=== PATIENT | male | born 1980 | race Caucasian/White ===

== ENCOUNTER 2017-02-08 07:54 | Emergency (ER) | payer OTHER ==
[~2017-02-08] VITALS: Ht 185.4 cm; Wt 93.0 kg
[~2017-02-08 07:54] MED LIST: ALBU18HF INHALATION; AZIT250T94 PO; MED4DP PO
[2017-02-08] MEDS ORDERED: IPRATROPIUM (NEB) 0.5 MG/2.5 ML AMP INH STA (08:00)
[2017-02-08] MEDS ORDERED: ALBUTEROL 0.5% (NEB) 2.5 MG/0.5 ML AMP INH STA (08:00)
[2017-02-08] MEDS ORDERED: METHYLPREDNISOLONE 125 MG INJ IV STA (08:00)
[2017-02-08] MEDS ORDERED: MAGNESIUM SULFATE 1 GM/D5W 100 ML IVPB ONE (08:00)
[2017-02-08 08:01] VITALS: Ht 185.4 cm; Wt 93.0 kg
--- NOTE | 2017-02-08 08:30 | RADRPT ---
PROCEDURE: Chest x-ray CLINICAL INDICATION: Asthma TECHNIQUE: Chest single view COMPARISON: 06/06/2016 FINDINGS: The heart is normal in size. The pulmonary vessels are normal in caliber. The lungs are clear. Th e costophrenic angles are sharp. The visualized bony thorax is unremarkable. IMPRESSION: No acute cardiopulmonary disease. RPTAT: HH .Michael Lamb MD, Date Time Electronically viewed and signed by .Michael Lamb MD, on 02/08/2017 08:29 .W/
--- NOTE | 2017-02-08 09:41 | ERD ---
ER Documentation Chief Complaint Date/Time DATE: 02/08/17 TIME: 09:39 Chief Complaint sob and wheezing since last night, out of inhaler HPI This is a 36-year-old male who presents to the emergency room for evaluation of shortness of breath and wheezing. The patient does have a history of asthma and states that he ran out of his inhaler. He denies any fevers associated with this or any chest pain and came to ER for evaluation. Patient has no other complaints at this time ROS All systems reviewed and are negative except as per history of present illness. Medications Home Meds Active Scripts Methylprednisolone* (Medrol* DOSE PACK) 4 Mg/Dose-Pack Tab.ds.pk, 4 MG PO . DIRECTED for 6 Days, PACKET Prov:JARADSATNAMGOLD C 06/06/16 Azithromycin* (Zithromax*) 250 Mg Tablet, 250 MG PO .ZPACK DIRECTED, #6 TAB TAKE 500 MG (2 TABS) THE FIRST DAY THEN 250 MG (1 TAB) DAYS 2-5 Prov:GOLD ABRAHAM 06/06/16 Albuterol Sulfate* (Ventolin HFA*) 18 Gm Hfa.aer.ad, 2 PUFF INHALATION Q4H, #1 INHALER 3 Refills Prov:SATNAM ABRAHAMYOLIS Méndez 06/06/16 Allergies Allergies: Coded Allergies: No Known Allergy (Unverified , 02/08/17) PMhx/Soc History of Surgery: Yes (l. arm ) Hx Respiratory Disorders: Yes (asthma) Hx Alcohol Use: No Hx Substance Use: No Hx Tobacco Use: Yes Smoking Status: Current some day smoker Physical Exam Vitals Vital Signs Date Time Temp Pulse Resp B/P Pulse Ox O2 Delivery O2 Flow Rate FiO2 02/08/17 09:10 77 20 94 Nasal Cannula 4.0 02/08/17 09:09 94 4.0 02/08/17 09:09 Nasal Cannula 4 02/08/17 08:28 78 22 127/80 95 Mask 8.0 02/08/17 08:10 Rebreather 15 02/08/17 08:08 98 28 100 Non Rebreather Mask 15.0 100 02/08/17 08:05 100 Non Rebreather 15.0 02/08/17 08:01 98.0 100 28 122/78 90 Physical Exam INITIAL VITAL SIGNS: Reviewed by me GENERAL: The patient is well developed, moderate respiratory distress HEENT: Pupils equal, round, and reactive to light. EOMI. There is no scleral icterus. NECK: C-spine is soft and supple, there is no meningismus. There is no cervical lymphadenopathy. LUNGS: Diffuse wheezing auscultated bilaterally HEART: Regular rate and rhythm, no murmurs, clicks, rubs or gallops. ABDOMEN: Soft, non-tender, non-distended. There are bowel sounds in all four quadrants. No rebound or guarding. EXTREMITIES: There is no peripheral cyanosis or edema. No focal swelling or erythema. NEUROLOGICAL: The patient moves all four extremities with 5/5 strength. Cranial nerves II - XII are intact. Normal gait. Alert and oriented SKIN: There is no apparent rash or petechiae. HEME/LYMPHATIC: There is no evidence of excessive bruising or lymphedema. PSYCHIATRIC: The patient does not appear anxious or depressed. Results 24 hrs Current Medications Medications (Trade) Dose Ordered Sig/Kelsey Route PRN Reason Start Time Stop Time Status Last Admin Dose Admin Albuterol (Proventil 0.5% (Neb)) 15 mg ONCE STAT INH 02/08/17 08:00 02/08/17 08:02 DC 02/08/17 08:08 Ipratropium [place] (Atrovent 0.02% (Neb)) 1 mg ONCE STAT INH 02/08/17 08:00 02/08/17 08:02 DC 02/08/17 08:08 Methylprednisolone Sodium Succinate 125 mg 125 mg ONCE STAT IV 02/08/17 08:00 02/08/17 08:02 DC 02/08/17 08:10 Magnesium Sulfate/ Dextrose (Magnesium Sulfate 1 Gm/D5W) 100 ml @ 100 mls/hr ONCE ONCE IVPB 02/08/17 08:00 02/08/17 08:59 DC 02/08/17 08:10 Procedures/MDM This 36-year-old male presents to the ER for evaluation of shortness of breath. When I evaluated him he is in moderate respiratory distress. I did auscultate wheezing bilaterally. The patient was given 2 breathing treatments in the emergency room, he was given Solu-Medrol magnesium. Upon my reevaluation he states is feeling much better and the patient will be discharged with a prescription for prednisone, and albuterol inhaler per Departure Diagnosis: Primary Impression: Asthma with acute exacerbation Condition: Stable BORHANI,KOROSH DO Feb 08, 2017 09:41
[2017-02-08] MEDS ORDERED: ALBUTEROL 0.083% (NEB) 2.5 MG/3 ML AMP NEB STA (09:42)
[2017-02-08] MEDS ORDERED: IPRATROPIUM (NEB) 0.5 MG/2.5 ML AMP NEB STA (09:42)
[2017-02-08] MEDS ORDERED: PRED20TA PO (09:44)
[2017-02-08] MEDS ORDERED: ALBU8.5H3 INH ×2 (09:44→10:38)
[2017-02-08 10:33] VITALS: BP 128/81; PULSE 81; RESP 20
== END 2017-02-08 11:16 | disposition home or self-care (01) ==
LOC: E/R 07:54
DX: J45.901 Unspecified asthma with (acute) exacerbation (principal); F17.210 Nicotine dependence, cigarettes, uncomplicated
CPT/HCPCS: 71010; 94640; 94644; J2930; J3475; Z7610; 94664; 96374; 96375